=== PATIENT | female | born 1935 | race Caucasian/White ===

== ENCOUNTER → 2021-07-04 | Outpatient (CLI) | payer MEDICARE | LOC: RAD 13:33 | PROVIDERS: ATTEND Internal Medicine | DX: R60.9 Edema, unspecified (principal) | CPT/HCPCS: 93306; 93970 ==

== ENCOUNTER → 2021-09-12 | Day surgery (SDC) | payer MEDICARE ==
[2021-09-11 08:08] LABS: BASOPHILS # (AUTO) 0.1 (0.0-0.1); BASOPHILS % 0.5 % (0.0-1.0); EOSINOPHILS # (AUTO) 0.1 (0.0-0.4); EOSINOPHILS % 0.7 % (0.0-6.0); HEMATOCRIT 37.1 % (34.2-44.1); LYMPHOCYTES % 51.5 % (18.0-39.1); MEAN CORPUSCULAR HEMOGLOBIN 30.2 pg (28-32); MEAN CORPUSCULAR HGB CONC 32.3 g/dL (31-35); MEAN CORPUSCULAR VOLUME 93.5 fL (81-99); MONOCYTES # (AUTO) 0.7 (0.2-0.8); MONOCYTES % 6.2 % (4.4-11.3); NEUTROPHILS # (AUTO) 4.8 (2.1-6.9); NEUTROPHILS % 40.8 % (38.7-80.0); PLATELET COUNT 181 x10e3/uL (140-360); RED BLOOD COUNT 3.97 x10e6/uL (3.6-5.1)
[2021-09-11 08:21] LABS: INR 1.2; PROTHROMBIN TIME 16.2 seconds (11.9-14.5)
[2021-09-11 08:28] LABS: ALBUMIN 3.8 g/dL (3.5-5.0); ANION GAP 16.6 mmol/L (8-16); CALCIUM 9.7 mg/dL (8.4-10.2); CREATININE, SERUM 1.22 mg/dL (0.57-1.11); POTASSIUM 3.6 mmol/L (3.5-5.1)
[2021-09-11 09:52] LABS: EOSINOPHILS % (MANUAL) 2 % (0-7); LYMPHOCYTES % (MANUAL) 53 % (19-48); MONOCYTES % (MANUAL) 6 % (3.4-9.0); NEUTROPHILS % (MANUAL) 39 % (40-74); PLATELET ESTIMATE ADEQUATE; PLATELET MORPHOLOGY COMMENT NORMAL; RBC MORPHOLOGY COMMENT NORMAL
[~2021-09-12] VITALS: Ht 162.6 cm; Wt 71.7 kg
[~2021-09-12] MED LIST: AMIODARONE HCL 100 ML IV ONE; BENZOCAINE 20% SPR 60 ML CAN ONE; CENTRUM ADULTS1 EACH PO; CINNAMON500 MG; ELIQUIS2.5 MG PO; FUROSEMIDE INJ 10 MG/ML 4 ML VIAL ONE; GLIMEPIRIDE4 MG PO; LIDOCAINE HCL 2% LOCAL INJ 5 ML SDV VIAL INJ ONE; LISINOPRIL-HCT1 EACH PO; METFORMIN HCL500 MG PO; METOPROLOL SUCC25 MG PO; PERFLUTREN LIPID MICROSPHERES 2 ML VIAL IV ONE; PROPOFOL IV EMULSION 10 MG/ML 20 ML VIAL ONE; SODIUM CHLORIDE 0.9% 1000ML 1,000 ML ONE
[2021-09-12 13:09] VITALS: BP 91/70
[2021-09-12 13:25] VITALS: BP 101/64
[2021-09-12 13:40] VITALS: BP 102/57
[2021-09-12 13:55] VITALS: BP 116/94
[2021-09-12 14:10] VITALS: BP 121/84
[2021-09-12 14:22] VITALS: BP 120/82
== END | disposition home or self-care (01) ==
LOC: OR 14:26
PROVIDERS: ATTEND Internal Medicine
DX: I48.0 Paroxysmal atrial fibrillation (principal); I49.1 Atrial premature depolarization; I34.0 Nonrheumatic mitral (valve) insufficiency; I07.1 Rheumatic tricuspid insufficiency; I37.1 Nonrheumatic pulmonary valve insufficiency; I11.0 Hypertensive heart disease with heart failure; I50.9 Heart failure, unspecified; E78.5 Hyperlipidemia, unspecified; E11.9 Type 2 diabetes mellitus without complications; Z88.8 Allergy status to other drugs, medicaments and biological substances; Z01.812 Encounter for preprocedural laboratory examination; Z20.822 Contact with and (suspected) exposure to COVID-19; Z79.84 Long term (current) use of oral hypoglycemic drugs; Z79.02 Long term (current) use of antithrombotics/antiplatelets; Z82.49 Family history of ischemic heart disease and other diseases of the circulatory system; Z83.3 Family history of diabetes mellitus
CPT/HCPCS: 36415 ×2; 80053; 82948; 83880; 85025; 85610; 92960; 93005; 93312; 93320; 93325; J1940; J7030; Q9957; U0002; J2001